=== PATIENT | male | born 1985 | race Caucasian/White ===

== ENCOUNTER → 2018-08-29 | Outpatient (CLI) | payer OTHER ==
[~2018-08-29] MED LIST: OMNIPAQUE 350 MG/ML, 100ML BOTTLE ONE
== END | disposition home or self-care (01) ==
LOC: CFH 10:23
PROVIDERS: ATTEND Family Medicine
DX: R10.13 Epigastric pain (principal); R42 Dizziness and giddiness
CPT/HCPCS: 70460; 76700; Q9967